=== PATIENT | female | born 1935 | race Caucasian/White ===

== ENCOUNTER 2019-02-17 12:04 | Emergency (ER) | payer MEDICARE, OTHER ==
[~2019-02-17] VITALS: Ht 152.4 cm; Wt 72.0 kg
[~2019-02-17 12:04] MED LIST: ACET325T33 PO; PRED20TA PO
[2019-02-17 12:08] VITALS: BP 145/68; PULSE 98; RESP 18; Ht 152.4 cm; Wt 72.0 kg
[2019-02-17] MEDS ORDERED: ACETAMINOPHEN 325 MG TAB PO ONE (13:00)
[2019-02-17] MEDS ORDERED: IBUPROFEN 200 MG TAB PO ONE (13:00)
[2019-02-17] MEDS ORDERED: DEXAMETHASONE 10 MG/ML 1 ML INJ IM ONE (13:00)
== END 2019-02-17 13:45 | disposition home or self-care (01) ==
LOC: FTE 12:04
DX: M10.032 Idiopathic gout, left wrist (principal)
CPT/HCPCS: 73110; 96372; 99284; J1100